=== PATIENT | male | born 1945 | race Caucasian/White ===

== ENCOUNTER 2018-05-23 00:41 | Outpatient (CLI) | payer MEDICARE, OTHER, SELFPAY ==
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
== END 2018-05-23 01:01 ==
PROVIDERS: PCP Nurse Practitioner Family; Visit Provider Nurse Practitioner Family
DX: M79.605 Pain in left leg (principal)
CPT/HCPCS: 73590

== ENCOUNTER 2019-10-16 12:06 | Outpatient (REF) | payer MEDICARE, OTHER, SELFPAY | END 2019-10-16 12:26 | LOC: LBN 12:06 | PROVIDERS: PCP Nurse Practitioner Family; Visit Provider Nurse Practitioner Family | DX: N20.0 Calculus of kidney (principal) | CPT/HCPCS: 82365 ==

== ENCOUNTER 2019-11-19 13:13 | Outpatient (REF) | payer MEDICARE, OTHER, SELFPAY ==
[2019-11-19 20:12] LABS: HCT 38.6 % (40.0-50.0); HGB 11.6 g/dL (13.5-17.5); Mean Corp. HGB Concentration 30.1 g/dL (32.0-36.0); Mean Corpuscular Hemoglobin 23.2 pg (27.0-33.0); Mean Corpuscular Volume 77.2 fL (80-95); Mean Platelet Volume 10.7 fL (8.0-11.0); Platelet Count 269 x1000/uL (130-400); White Blood Cell Count 7.94 k/cumm (4.4-10.8)
[2019-11-19 20:21] LABS: Anion Gap 7.9 mmol/L (3-11); BUN 20 mg/dL (7-18); CO2 27.1 mmol/L (21.0-32.0); CREATININE 1.25 mg/dL (0.70-1.30); Calcium 8.8 mg/dL (8.5-10.1); Calculated LDL 47 mg/dL (<100); Chloride 108 mmol/L (98-107); Cholesterol 108 mg/dL (<200); Estimated GFR 56.78 (mL/min/1.73m2); Glucose 87 mg/dL (74-106); HDL Cholesterol 28 mg/dL (40-60); Potassium 4.6 mmol/L (3.5-5.1); Sodium 143 mmol/L (136-145); Triglyceride 168 mg/dL (<150)
== END 2019-11-19 13:33 ==
LOC: LBO 13:13
PROVIDERS: PCP Nurse Practitioner Family; Visit Provider Nurse Practitioner Family
DX: E78.5 Hyperlipidemia, unspecified (principal); I10 Essential (primary) hypertension
CPT/HCPCS: 80048; 80061; 85027

== ENCOUNTER 2019-11-30 02:13 | Outpatient (CLI) | payer MEDICARE, OTHER, SELFPAY ==
[2019-11-30 15:18] LABS: Iron 26 ug/dL (65-175); Total Iron Binding Capacity 318 ug/dL (250-450); Transferrin Sat 8 % (20-55)
[2019-11-30 15:27] LABS: Anion Gap 6.7 mmol/L (3-11); BUN 23 mg/dL (7-18); CO2 25.3 mmol/L (21.0-32.0); CREATININE 1.32 mg/dL (0.70-1.30); Calcium 8.7 mg/dL (8.5-10.1); Chloride 108 mmol/L (98-107); Estimated GFR 53.32 (mL/min/1.73m2); Ferritin 10 ng/mL (26-388); Glucose 133 mg/dL (74-106); Potassium 4.4 mmol/L (3.5-5.1); Sodium 140 mmol/L (136-145)
== END 2019-11-30 02:33 ==
PROVIDERS: PCP Nurse Practitioner Family; Visit Provider Nurse Practitioner Family
DX: D50.9 Iron deficiency anemia, unspecified (principal); N28.9 Disorder of kidney and ureter, unspecified
CPT/HCPCS: 80048; 82728; 83540; 83550

== ENCOUNTER 2020-01-15 02:26 | Outpatient (CLI) | payer OTHER, MEDICARE, SELFPAY ==
[2020-01-15 12:29] LABS: Abs Immature Grans 0.04 10^3/uL (0.0-0.06); Absolute Basophil Count 0.07 10^3/uL (0.0-0.2); Absolute Eosinophil Count 0.29 10^3/uL (0.0-0.7); Absolute Lymphocyte Count 2.24 10^3/uL (1.2-3.4); Absolute Monocyte Count 1.09 10^3/uL (0.1-0.8); Absolute Neutrophil Count 6.04 10^3/uL (1.2-6.7); Basophils % 0.7; HCT 40.7 % (40.0-50.0); HGB 12.3 g/dL (13.5-17.5); Immature Grans % 0.4; Lymphocytes % 22.9; MCH 24.1 pg (27.0-33.0); MCHC 30.2 % (32.0-36.0); MCV 79.6 fL (80-95); MPV 10.3 fL (8.0-11.0); Monocytes % 11.2; Neutrophils % 61.8; Nucleated RBC 0 %; Platelet Count 223 10^3/uL (130-400); RBC 5.11 10^6/uL (4.36-5.78); RDW 17.6 % (11.8-14.1); RDW-SD 50.5 fL; WBC 9.77 10^3/uL (4.4-10.8)
== END 2020-01-15 02:46 ==
PROVIDERS: PCP Nurse Practitioner Family; Visit Provider Nurse Practitioner Family
DX: D50.9 Iron deficiency anemia, unspecified (principal)
CPT/HCPCS: 36415; 85025

== ENCOUNTER 2020-06-01 03:52 | Outpatient (CLI) | payer MEDICARE, OTHER, SELFPAY ==
[2020-06-01 11:04] LABS: Abs Immature Grans 0.02 10^3/uL (0.0-0.06); Absolute Basophil Count 0.08 10^3/uL (0.0-0.2); Absolute Eosinophil Count 0.27 10^3/uL (0.0-0.7); Absolute Lymphocyte Count 1.96 10^3/uL (1.2-3.4); Absolute Monocyte Count 0.91 10^3/uL (0.1-0.8); Absolute Neutrophil Count 6.05 10^3/uL (1.2-6.7); Basophils % 0.9; Eosinophils % 2.9; HCT 46.5 % (40.0-50.0); HGB 14.2 g/dL (13.5-17.5); Immature Grans % 0.2; Lymphocytes % 21.1; MCH 25.3 pg (27.0-33.0); MCHC 30.5 % (32.0-36.0); MCV 82.9 fL (80-95); MPV 10.4 fL (8.0-11.0); Monocytes % 9.8; Neutrophils % 65.1; Nucleated RBC 0 %; Platelet Count 220 10^3/uL (130-400); RBC 5.61 10^6/uL (4.36-5.78); RDW 15.9 % (11.8-14.1); RDW-SD 47.7 fL; WBC 9.29 10^3/uL (4.4-10.8)
[2020-06-01 12:03] LABS: Anion Gap 8.1 mmol/L (3-11); BUN 18 mg/dL (7-18); C-Reactive Protein 0.27 mg/dL (0.0-0.3); CO2 28.9 mmol/L (21.0-32.0); CREATININE 1.1 mg/dL (0.70-1.30); Chloride 106 mmol/L (98-107); Glucose 90 mg/dL (74-106); Potassium 4.6 mmol/L (3.5-5.1); Sodium 143 mmol/L (136-145)
[2020-06-01 12:29] LABS: ESR 11 mm/hr (1-20)
[2020-06-02 17:49] LABS: Erythropoietin 29.5 mIU/mL (2.6 - 18.5)
== END 2020-06-01 03:53 | disposition home or self-care (01) ==
LOC: LBO 03:52
PROVIDERS: PCP Nurse Practitioner Family; Visit Provider Nurse Practitioner Family
DX: D50.9 Iron deficiency anemia, unspecified (principal); N28.89 Other specified disorders of kidney and ureter
CPT/HCPCS: 36415; 80048; 82668; 85652; 85025; 86140

== ENCOUNTER 2020-11-30 03:36 | Outpatient (CLI) | payer MEDICARE, OTHER, SELFPAY ==
[2020-11-30 08:13] LABS: Abs Immature Grans 0.03 10^3/uL (0.0-0.06); Absolute Basophil Count 0.05 10^3/uL (0.0-0.2); Absolute Lymphocyte Count 1.72 10^3/uL (1.2-3.4); Absolute Monocyte Count 0.85 10^3/uL (0.1-0.8); Absolute Neutrophil Count 5.42 10^3/uL (1.2-6.7); Basophils % 0.6; Eosinophils % 4.7; HCT 45.9 % (40.0-50.0); HGB 14.1 g/dL (13.5-17.5); Immature Grans % 0.4; Lymphocytes % 20.3; MCH 27.1 pg (27.0-33.0); MCHC 30.7 % (32.0-36.0); MCV 88.1 fL (80-95); MPV 9.9 fL (8.0-11.0); Nucleated RBC 0 %; Platelet Count 237 10^3/uL (130-400); RBC 5.21 10^6/uL (4.36-5.78); RDW 14.6 % (11.8-14.1); RDW-SD 47.2 fL; WBC 8.47 10^3/uL (4.4-10.8)
[2020-11-30 08:35] LABS: Hemoglobin A1C 6.2 % (<5.7)
[2020-11-30 09:44] LABS: ALT 19 U/L (16-63); AST 20 U/L (15-37); Albumin 3.5 g/dL (3.4-5.0); Alkaline Phosphatase 78 U/L (46-116); Anion Gap 5.6 mmol/L (3-11); BUN 17 mg/dL (7-18); Bilirubin, Total 0.5 mg/dL (0.2-1.0); CO2 31.4 mmol/L (21.0-32.0); CREATININE 1.1 mg/dL (0.70-1.30); Calcium 8.9 mg/dL (8.5-10.1); Calculated LDL 61 mg/dL (<100); Chloride 107 mmol/L (98-107); Cholesterol 122 mg/dL (<200); Glucose 90 mg/dL (74-106); HDL Cholesterol 30 mg/dL (40-60); Potassium 4.8 mmol/L (3.5-5.1); Sodium 144 mmol/L (136-145); Total Protein 7.1 g/dL (6.4-8.2); Triglyceride 156 mg/dL (<150)
== END 2020-11-30 03:37 | disposition home or self-care (01) ==
PROVIDERS: PCP Nurse Practitioner Family; Visit Provider Nurse Practitioner Family
DX: R73.01 Impaired fasting glucose (principal); I10 Essential (primary) hypertension; E78.5 Hyperlipidemia, unspecified; Z79.899 Other long term (current) drug therapy
CPT/HCPCS: 36415; 80053; 80061; 83036; 85025

== ENCOUNTER 2020-12-02 10:39 | Outpatient (CLI) | payer MEDICARE, OTHER, SELFPAY ==
--- NOTE | 2020-12-02 10:00 | DI.RAD_ITS ---
Exam(s) XR CHEST 2V PA LATERAL EXAM: XR CHEST 2V PA LATERAL CLINICAL HISTORY: persistent cough >1 amy, decr lung sounds ?PNeumonia TECHNIQUE: 2D digital imaging was performed. COMPARISON: CR CHEST 2 VIEWS PA,LAT from 09/03/2014 FINDINGS: The heart is not enlarged. The lungs are clear and well expanded. No pleural effusion seen. Mediastin al contours appear intact. IMPRESSION: Normal chest. RADIATION DOSE DELIVERED: Total DLP
== END 2020-12-02 10:59 ==
PROVIDERS: PCP Nurse Practitioner Family; Visit Provider Nurse Practitioner Family
DX: R05 Cough (principal)
CPT/HCPCS: 71046

== ENCOUNTER 2022-03-02 02:11 | Outpatient (CLI) | payer MEDICARE, OTHER, SELFPAY ==
--- OUTSIDE RECORDS SUMMARY | 2022-03-02 02:14 | XMS_ITS | Clinical Summary ---
:1945 Author Organization [facility] [place] [address] Care Team Providers Name Role Phone Billy Camara MD Primary Care Provider [phone] Allergies Active Allergy Reactions Severity Noted Date Comments Terazosin Hcl Rash Medium Medications Medication Sig Dispensed Refills Start Date End Date Status atenolol (TENORMIN) 50 mg 50 MG = 1 0 05/30/2010 Active tablet Tablet(s), PO, Twice daily nitroGLYcerin (NITROSTAT) 0 05/22/2010 Active 0.4 mg SL tablet clopidogrel (PLAVIX) 75 Take 75 mg by 0 Active mg tablet mouth daily. lisinopril Take 10 mg by 0 Activ e (PRINIVIL;ZESTRIL) 10 mg mouth daily. tablet omeprazole (PRILOSEC) 20 Take 20 mg by 0 Active mg capsule mouth daily. simvastatin (ZOCOR) 20 mg Take 20 mg by 0 Active tablet mouth nightly. diphenhydrAMINE Take 75 mg by 0 Active (BENADRYL) 25 mg tablet mouth nightly. Active Problems Problem Noted Date Posterior vitreous detachment, left eye 12/06/2012 Pseudophakia of both eyes 12/06/2012 HTN (hypertension) 08/07/2012 Hyperlipidemia 08/07/2012 CVA (cerebrovascular accident) 08/07/2012 CIS - angina Immunizations Name Administration Dates Next Due Influenza Vaccine, Whole 02/23/2010 Family History Medical History Relation Comments Diabetes Neg Hx Glaucoma Neg Hx Macular Degeneration Neg Hx Social History Tobacco Use Types Packs/Day Years Used Date Former Smoker Cigarettes Quit: 04/29/18 92 Smokeless Tobacco: Never Used Alcohol Use Standard Drinks/Week Comments Yes 0 (1 standard drink = 0.6 oz pure alcoho l) seldom Alcohol Habits Answer Date Recorded How often do you have a drink containing alcohol? Not asked How many drinks containing alcohol do you have on a typical Not asked day when you are drinking? How often do you have six or more drinks on one occasion? No t asked Comment: seldom 12/02/2012 Sex Assigned at Date Recorded Not on file Last Filed Vital Signs Vital Sign Reading Time Taken Comments Blood Pressure 130/70 08/07/2012 1:40 PM EDT Pulse 64 08/07/2012 1:40 PM EDT Temperature - - Respiratory Rate - - Oxygen Saturation 98% 08/07/2012 1:40 PM EDT Inhaled Oxygen Concentration - - Weight 97.3 kg (214 lb 8 oz) 08/07/2012 1:40 PM EDT Height 172.7 cm (5' 8) 08/07/2012 1:40 PM EDT Body Mass Index 32.61 08/07/2012 1:40 PM EDT Plan of Treatment Health Maintenance Due Date Last Done Comments Covid-19 Vaccine (#1) 1945 Hepatitis C Screening 1965 Lipid Screening 1965 Tdap adult 1966 Tetanus vaccine 1966 Colonoscopy 02/09/1992 Zoster vaccine (1 of 2) 1997 Advance Directive 2002 Pneumoccocal Vaccine: 65+ (1 - PCV) 02/09/2012 Influenza (Flu) vaccine (1 of 1 - Influenza standard 12/28/2021 02/23/2010 series) Care Teams Hand Brim Ironer Relationship Specialty Start Date End Date Billy Camara MD PCP - General 03/21/[address] [place] [address]
--- OUTSIDE RECORDS SUMMARY | 2022-03-02 02:14 | XMS_ITS | Encounter Summary ---
:1945 Author Organization [facility] [place] [address] Care Team Providers Name Role Phone Billy Camara MD Primary Care Provider [phone] Encounter Details Date Type Department Care Team Description 05/22/2010 Office Visit Cardiology at [facility] Gabriel Galloway MD [facility] [place] [address] CARDIOLOGY DEPT. [phone] [place], [place] [address] (Wo rk) Social History Tobacco Use Types Packs/Day Years Used Date Never Assessed Sex Assigned at Date Recorded Not on file documented as of this encounter Plan of Treatment Not on filedocumented as of this encounter Visit Diagnoses Not on filedocumented in this encounter Care Teams Workers Compensation Claims Assistant Relationship Specialty Start Date End Date Billy Camara MD PCP - General 03/21/[address] [place] [address] documented as of this encounter
--- OUTSIDE RECORDS SUMMARY | 2022-03-02 02:14 | XMS_ITS | Encounter Summary ---
:1945 Author Organization [facility] Address [facility] [place] [address] Care Team Providers Name Role Phone Billy Camara MD Primary Care Provider [phone] Reason for Visit Reason Comments Eye Problem the patient presents for fo llowup evaluation of his vitreous separation in the left eye. DANIELA Fonseca Encounter Details Date Type Department Care Team Description 12/18/2012 Follow-Up Ophthalmology at [facility] Mario Blankenship Pseudophakia of both eyes (P rimary Dx); [facility] MD Avani Posterior vitreous detachment, [place] [address] OPHTHALMOLOGY DE PT. [place], [place] [address] (Wo rk) Social History Tobacco [...] on file documented as of this encounter Progress Notes Mario Lemus MD - 12/18/2012 2:16 PM EDT December 18, 2012 Leigh Carter MD Ophthalmology [address] [place] [address] RE: Robert Weaver A#: [id number] Dear leigh, Just a brief note regarding Robert Weaver who returns here today on 12/18/2012. As you know, he is a pleasant gentleman you asked me to see for evaluation of the vitreous separation and possible early peripheral retinal pathology. I am seeing him today for followup evaluation on 12/18/2012. In summary, I performed indirect ophthalmoscopy with scleral depression, examination with a three-mirror lens as well as a panfundus lens. I did not find any evidence of a retinal tear or traction in either eye, but the vitreous appears to be condensed. No holes, tears, or other high-risk changes requiring treatment are noted. DISCUSSION: Given the challenges with respect to his examination and his risk for a tear, I have asked him to return to see me for a final checkup in four weeks. If before that time he has any symptoms, I have asked him to call me immediately. I will keep you informed regarding his progress. Respectfully, Mario Lemus M.D. documented in this encounter Plan of Treatment Not on filedocumented as of this encounter Visit Diagnoses Diagnosis Pseudophakia of both eyes - Primary Lens replaced by other means Posterior vitreous detachment, left eye Vitreous degeneration documented in this encounter Care Teams Audio Visual Coordinator Relationship Specialty Start Date End Date Billy Camara MD PCP - General 03/21/[address] [place] [address] documented as of this encounter
--- OUTSIDE RECORDS SUMMARY | 2022-03-02 02:14 | XMS_ITS | Encounter Summary ---
:1945 Author Organization [facility] [place] [address] Care Team Providers Name Role Phone Billy Camara MD Primary Care Provider [phone] Reason for Visit Reason Comments Eye Problem The patient presents for con sultation regarding a possible retinal tear in the right eye.. DANIELA Fonseca Encounter Details Date Type Department Care Team Description 12/02/2012 Office Visit Ophthalmology at [facility] Tyrel Lemus, Posterior vitreous detachmen t, left eye (Primary Dx); [facility] Mario Varma MD Pseudophakia [place] [address] [address] [phone] OPHTHALMOLOGY DE PT. [place] [id number] (Wo rk) Social History Tobacco Use Types [...] encounter Progress Notes Mario Lemus MD - 12/06/2012 3:37 PM EDT December 07, 2012 Leigh Carter M.D. Ophthalmology [address] [place] [address], [address] [place] [id number] RE: Robert Weaver A#: [id number] Dear Leigh, I am expediting to you this brief note regarding Robert Weaver whom I saw for formal consultation on 12/02/2012. As you know, he developed flashes and floaters in the right eye and your concern about the possibility of a retinal tear and perhaps even a vitreous hemorrhage in the left eye. Careful examination did not reveal a small hole or tear. The vitreous demonstrated significant condensation, but I did not see any cell, hemorrhage or pigment. The view is somewhat hazy and therefore I am going to recommend that he return to see me within the next week for repeat evaluation. In the interim, if he has any flashes, floaters, or visual field changes, he has been instructed to call me immediately. I think that his vitreous separation is simply evolving, but I am concerned about the degree of vitreous condensation. When he returns, I will keep you informed regarding his progress. Respectfully, Mario Lemus M.D. ADDENDUM TO TECHNICIANS. Please be sure that both eyes are dilated. documented in this encounter Plan of Treatment Not on filedocumented as of this encounter Visit Diagnoses Diagnosis Posterior vitreous detachment, left eye - Primary Vitreous degeneration Pseudophakia of both eyes Lens replaced by other means documented in this encounter Care Teams Nuclear Weapons Mechanical Specialist Relationship Specialty Start Date End Date Billy Camara MD PCP - General 03/21/[address] [place] [address] documented as of this encounter
--- OUTSIDE RECORDS SUMMARY | 2022-03-02 02:14 | XMS_ITS | Encounter Summary ---
:1945 Author Organization [facility] [place] [address] Care Team Providers Name Role Phone Billy Camara MD Primary Care Provider [phone] Reason for Visit Reason Comments Vitreous Detachment Patient presents for followu p evaluation of his acute posterior vitreous detachment. CBC iMD Encounter Details Date Type Department Care Team Description 01/22/2013 Follow-Up Ophthalmology at [facility] C Mario Lemus Posterior vitreous detachmen t, left eye; [facility] MD Avani Pseudophakia of [place] [address] OPHTHALMOLOGY DE PT. [place], [place] [address] (Wo rk) Social History Tobacco [...] encounter Progress Notes Mario Lemus MD - 01/25/2013 8:39 PM EDT CLARIFICATION NEEDED: PLEASE CHECK DICTATED DATE OF SERVICE DECEMBER 22, 2012 WAS DICTATED. December 22, 2012 Leigh Carter MD Ophthalmology [address] [place] [address], [place] [address] RE: Robert Weaver A#: [id number] Dear Leigh: I had the pleasure of seeing your patient, Mr. Robert Weaver, for followup evaluation on 12/22/2012. As you know, I saw him earlier in November for vitreous separation in the left eye. I have seen him twice since his original consultation. I am pleased to report that there is no evidence of a retinal hole, tear, or other high-risk pathology. The vitreous is rather condensed in the vitreous base, but I do not see any unusual traction nor do I see anything which requires prophylactic laser treatment. Given three relatively stable retinal examinations, we have collectively decided that he should return to see you in the next two to three months for continuity of care. Still however, I have asked him to remain vigilant to report promptly for any flashes, floaters, or visual field loss given his symptoms and pseudophakic status. I would of course be pleased to see him at your request for any concerns whatsoever. Also, if you are not available, I would be more than pleased to see this gentleman at any time should he develop any new symptoms or concerns. Thank you kindly for asking me to provide consultation for this nice gentleman. Respectfully, Mario Lemus MD documented in this encounter Plan of Treatment Not on filedocumented as of this encounter Visit Diagnoses Diagnosis Posterior vitreous detachment, left eye Vitreous degeneration Pseudophakia of both eyes Lens replaced by other means documented in this encounter Care Teams Dynamics Ax Technical Architect Relationship Specialty Start Date End Date Billy Camara MD PCP - General 03/21/[address] [place] [address] documented as of this encounter
--- OUTSIDE RECORDS SUMMARY | 2022-03-02 02:14 | XMS_ITS | Encounter Summary ---
:1945 Author Organization [facility] [place] [address] Care Team Providers Name Role Phone Billy Camara MD Primary Care Provider [phone] Encounter Details Date Type Department Care Team Description 05/22/2010 Hospital Encounter Nuclear Medicine at [facility], Billy Mosquera MD [address] [place], [place] [address] [place] [address] Social History Tobacco Use Types Packs/Day Years Used Date Never Assessed Sex Assigned at Date Recorded Not on file documented as of this encounter Medications at Time of Discharge Medication Sig Dispensed Refills Start Date End Date nitroGLYcerin (NITROSTAT) 0.4 mg SL 0 05/22/2010 tablet traZODone (DESYREL) 50 mg tablet 0 08/07/2012 lisinopril (PRINIVIL;ZESTRIL) 10 mg 0 05/22/2010 08/07/2012 tablet documented as of this encounter Plan of Treatment Not on filedocumented as of this encounter Visit Diagnoses Not on filedocumented in this encounter Care Teams Driver Medic Relationship Specialty Start Date End Date Billy Camara MD PCP - General 03/21/[address] [place] [address] [place] [address] documented as of this encounter
--- OUTSIDE RECORDS SUMMARY | 2022-03-02 02:15 | XMS_ITS | Encounter Summary ---
:1945 Author Organization [facility] Address [address] [place] [address] Care Team Providers Name Role Phone Billy Camara MD Primary Care Provider Unavailable Encounter Details Date Type Department Care Team Description 06/09/2021 Lab Requisition [facility] Christopher May Encounter for screening for malignant neoplasm of colon; Pathology & MD Andrew Gastro-esophageal reflux disease without esophagitis Laboratory Medicine [address] [place] [phone] Social History Tobacco Use Types Packs/Day Years Used Date Never Assessed Sex Assigned at Date Recorded Not on file documented as of this encounter Plan of Treatment Not on filedocumented as of this encounter Procedures Procedure Name Priority Date/Time Associated Diagnosis Comme nts SURGICAL PATHOLOGY Today 06/08/2021 10:49 Encounter for Resu lts for this EST screening for procedure are in malignant neoplasm the resul ts of colon section. Gastro-esophageal reflux disease without esophagitis documented in this encounter Results SURGICAL PATHOLOGY (06/08/2021 10:49 EST) Note to Patient The following [facility] MEDICAL pathology results have CENTER been interpreted by LABORATORY your pathologist and SERVICES may be available to you before your health provider has had the opportunity to review them. Please allow time for your provider to receive these results and explore management options, if applicable. Final Diagnosis A. COLON, DESCENDING, POLYP, BIOPSY: U MEDICAL - Consistent with inflammatory polyp with lamina propria xanthomatous change. CENTER - Negative for dysplasia and malignancy. LABORATORY - See comment. SERVICES Diagnosis Comment The polyp shows prominent la ying propria histiocytes. Immunoperoxidase stains were performed on this case to further characterize the lesion. [facility] ANTIBODY(CLONE)(BLOCK):RESULT LABORATORY Keratin AE1-AE3 (AE1-AE3, [facility]) (A1): Negative for malignancy SERVICES CD163 (MRQ-26, [place]) (A1): Highlights lamina propri a histiocytes. CD1a (MTB1, Leica) (A1): Negative in histiocytes. NOTE: One or more of the re agents used in immunoperoxidase testing in this case may not have been cleared or approved by the U.S. Food and Drug Administration (FDA). The FDA has determined that such cl earance or approval is not n ecessary. These tests are used for clinical purposes. They should not be regarded as investigational or for research. These reagents' performance characteristics have been de termined by [facility] and/or by the referring laboratory. The positive and negative controls worked appropriately. If immunoperoxidase staining has been performed on alcoh ol fixed cytology specimens, which has not been fully validated, the assays should be interpreted with caution and correlated with clinical data. This laboratory is certified under the Clinical Laborato ry Improvement Amendments of 1988 (CLIA-88) as qualified to perform high complexity clinical laboratory testing. Carpenter Maintenance slides of thi s case were reviewed at the gastrointestinal/liver intradepartmental consultation conference. (RW, JK, ) Attestation By the signature below, [facility] tronically the attending physician CENTER sign ed by Royal Alves, certifies that they LABORATORY George Robertson MD on have 1) personally SERVICES 06/14/2021 at 1643 conducted a gross and/or microscopic examination of the described specimen(s), and/or personally interpreted the results of laboratory testing of the described specimen(s), and 2) personally rendered or confirmed the above diagnosis. Clinical History Screening colonoscopy, [facility] hx of diarrhea, colon CENTER polyp; clinical LABORATORY diagnosis code: K12.11, SERVICES K21.9 Gross Description A. [facility] Received in formalin gualberto d with proper patient identification (initials B, S) and polyp-proximal descending colon is a white focally pinpoint brown tissue (0.3 x 0.2 x 0.2 cm). Submitted intact in A1. CENTER LABORATORY Feliciano Rowland 06/09/2021 13:53 SERVICES Performing Lab [facility] LAB [facility] LABORATORY SERVICES Scanned Images [facility] LABORATORY SERVICES Specimen Tissue - Descending colon structure (bod y structure) Performing Organization Address City/State/ZIP Code Phon e Number [facility] LABORATORY [address] [place] [address] SERVICES documented in this encounter Visit Diagnoses Diagnosis Encounter for screening for malignant ne oplasm of colon Special screening for malignant neoplasm s, colon Gastro-esophageal reflux disease without esophagitis Esophageal reflux documented in this encounter Care Teams Business Analyst Ecommerce Relationship Specialty Start Date End Date Billy Camara MD PCP - General 08/01/12 documented as of this encounter
--- OUTSIDE RECORDS SUMMARY | 2022-03-02 02:15 | XMS_ITS | Encounter Summary ---
:1945 Author Organization [facility] Address [address] [place] [address] Care Team Providers Name Role Phone Unknown, Provider Primary Care Provider Encounter Details Date Type Department Care Team Description 07/31/2012 Results Only [facility] Yan Nagel MD Laboratory Services - [address] [place] [address] [place] [address] [place] [address] [phone] Social History Tobacco Use Types Packs/Day Years Used Date Never Assessed Sex Assigned at Date Recorded Not on file documented as of this encounter Plan of Treatment Not on filedocumented as of this encounter Procedures Procedure Name Priority Date/Time Associated Diagnosis Comme [facility] SURGICAL PATHOLOGY Routine 07/31/2012 21:39 Resul ts for this EDT procedure are i n the results section. documented in this encounter Results SURGICAL PATHOLOGY (07/31/2012 21:39 EDT) Pathology Report: SURGICAL PATHOLOGY REPORT DONALD YIP Reports generated via electronic interface contain raimundo ginal data; LAB however they are lacking the format of the original re port. Caution should be taken when reading/interpreting unfo rmatted reports. Name: ? ROBERT TRAN ? Accession #: ? [id number] ? : ? 1945 (Age: 67) ??M ? Collect Date: ? 07/31/2012 ? Location: ? [facility] ? Receive Date: ? 013 ? Provider: DES NAGEL MD Copy to: MARY TUTTLE MD ? Final Pathologic Diagnosis: A. ?Colon, transverse, biopsies: 1. ?Tubular adenoma. B. ?Colon, splenic flexure, biopsies: 1. ?Sessile serrated adenoma. C. ?Colon, sigmoid, biopsy: 1. ?Hyperplastic polyp. ?? Document reviewed and electronically signed by: JANI GIORDANO [facility] Report ??Date: 08/04/2012 16:33 By the signature above, the attending physician certif ies that he/she has personally conducted a gross and/or microscopic examin ation of the described specimens and rendered or confirmed the above diagnosi s. Specimen(s) Received: A. ?Tx colon bx (#1) B. ? Splenic flexure bx (#2) C. ? Sigmoid bx (#3) Clinical History: ?Colorectal CA screening Gross Description: ? Received in formalin labelled Meg, Robert and transverse colon biopsies are two pink-dominguez i rregular soft tissues both measuring 0.2 x 0.2 x 0.2 cm. ??The contents are entirely submitted in cassette (A1). Received in formalin gualberto d Meg, Robert and splenic flexure biopsy is a 1.1 x 0.7 x 0.3 cm dominguez-red polypoid tissue and two p ink-dominguez irregular soft tissues measuring 0.2 x 0.2 x 0.2 cm and 0.6 x 0.3 x 0.2 cm. ??The margins of the polypoid tissue are inked bl ue. ??The tissue is sectioned and entirely submitted in cassettes (B1) and (B2). The remaining fragme nts are submitted entirely in (B3). Received in formalin labelled Meg Robert and rosenda igmoid biopsy is a pink-dominguez irregular soft tissue fragment measuring 0.3 x 0.2 x 0.2 cm. ??The contents are entirely submitted in cassette (C1). ??(Kt Alanis)/[facility] End of Report Specimen Performing Organization Address City/State/ZIP Code Phon e Number [facility] [address] [place] [address] SERVICES [facility] [address] [place] [address] documented in this encounter Visit Diagnoses Not on filedocumented in this encounter Care Teams Speech Language Pathology Assistant Relationship Specialty Start Date End Date Unknown, Provider, PCP - General 07/31/12 07/31/12 documented as of this encounter
--- OUTSIDE RECORDS SUMMARY | 2022-03-02 02:15 | XMS_ITS | Encounter Summary ---
:1945 Author Organization [facility] Address [address] [place] [address] Care Team Providers Name Role Phone Billy Camara MD Primary Care Provider Unavailable Encounter Details Date Type Department Care Team Description 01/09/2016 Hospital Encounter [facility]- [place] Unknown, Provider, [facility] 0 [facility] [phone] [place] [address] (Work) [phone] Social History Tobacco Use Types Packs/Day Years Used Date Never Assessed Sex Assigned at Date Recorded Not on file documented as of this encounter Discharge Disposition Disposition Code Departure Means Destination Home or Self Usp documented in this encounter Plan of Treatment Not on filedocumented as of this encounter Visit Diagnoses Not on filedocumented in this encounter Care Teams Anesthesiology Resident Relationship Specialty Start Date End Date Billy Camara MD PCP - General 08/01/12 documented as of this encounter
--- OUTSIDE RECORDS SUMMARY | 2022-03-02 02:15 | XMS_ITS | Clinical Summary ---
:1945 Author Organization [facility] Address [address] [place] [address] Care Team Providers Name Role Phone Billy Camara MD Primary Care Provider Unavailable Social History Tobacco Use Types Packs/Day Years Used Date Never Assessed Sex Assigned at Date Recorded Not on file Plan of Treatment Health Maintenance Due Date Last Done Comments Hepatitis C Screen 1945 COVID-19 Vaccine (#1) 1945 Fall Risk Screening 02/09/2012 Insurance Payer Benefit Plan / Subscriber ID Effective Phone Address T ype Group Dates CIGNA CIGNA [id number] 2021-Prese [phone] [address] [employer] [facility] [address] nt [id number] [place] [address] MEDICARE MEDICARE A/B [id number] 2012-Pres [address] Medicare GL ent [id number] [facility] [place] [phone] Robert Weaver Personal/Family Self 1945 [address] (Home) [place] [address] Robert Weaver Personal/Family Self 1945 [address]Home) [place] [address] Care Teams Javascript Software Engineer Relationship Specialty Start Date End Date Billy Camara MD PCP - General 08/01/12
[2022-03-02 08:16] LABS: Abs Immature Grans 0.02 10^3/uL (0.0-0.06); Absolute Basophil Count 0.06 10^3/uL (0.0-0.2); Absolute Eosinophil Count 0.23 10^3/uL (0.0-0.7); Absolute Lymphocyte Count 1.93 10^3/uL (1.2-3.4); Absolute Monocyte Count 0.77 10^3/uL (0.1-0.8); Absolute Neutrophil Count 3.87 10^3/uL (1.2-6.7); Basophils % 0.9; Eosinophils % 3.3; HGB 15.7 g/dL (13.5-17.5); Immature Grans % 0.3; Lymphocytes % 28.1; MCH 29.6 pg (27.0-33.0); MCHC 32.7 % (32.0-36.0); MCV 91 fL (80-95); MPV 10.6 fL (8.0-11.0); Monocytes % 11.2; Neutrophils % 56.2; Platelet Count 236 10^3/uL (130-400); RDW 13.5 % (11.8-14.1); RDW-SD 45.1 fL; WBC 6.88 10^3/uL (4.4-10.8)
[2022-03-02 08:34] LABS: ALT 34 U/L (16-63); AST 18 U/L (15-37); Albumin 3.5 g/dL (3.4-5.0); Alkaline Phosphatase 83 U/L (46-116); Anion Gap 6.9 mmol/L (3-11); BUN 21 mg/dL (7-18); Bilirubin, Total 0.6 mg/dL (0.2-1.0); CO2 30.1 mmol/L (21.0-32.0); Calculated LDL 74 mg/dL (<100); Chloride 105 mmol/L (98-107); Cholesterol 138 mg/dL (<200); Estimated GFR 78.49 (mL/min/1.73m2); Glucose 90 mg/dL (74-106); HDL Cholesterol 37 mg/dL (40-60); Potassium 4.3 mmol/L (3.5-5.1); Sodium 142 mmol/L (136-145); Total Protein 7.5 g/dL (6.4-8.2); Triglyceride 139 mg/dL (<150)
== END 2022-03-02 02:12 | disposition home or self-care (01) ==
LOC: LBO 02:11
PROVIDERS: PCP Nurse Practitioner Family; Visit Provider Nurse Practitioner Family
DX: I10 Essential (primary) hypertension (principal); R73.01 Impaired fasting glucose; E78.5 Hyperlipidemia, unspecified; Z86.2 Personal history of diseases of the blood and blood-forming organs and certain disorders involving the immune mechanism
CPT/HCPCS: 36415; 80053; 80061; 83036; 85025

== ENCOUNTER 2022-09-07 00:22 | Outpatient (CLI) | payer BC, MEDICARE, SELFPAY ==
--- NOTE | 2022-09-07 07:48 | DI.RAD_ITS ---
Exam(s) XR CHEST 2V PA LATERAL EXAM: XR CHEST 2V PA LATERAL CLINICAL HISTORY: ? effusion to explain edema (vs. venous insuff),r60.9,r09.89 TECHNIQUE: 2D digital imaging was performed. COMPARISON: CR XR CHEST 2V PA LATERAL from 12/02/2020 FINDINGS: HEART: Normal size. Aorta: Not dilated. PULMONARY VASCULATURE: Normal. LUNGS: Clear. PLEURAL SPACE: No pleural effusion or pneumothorax. BONE:Unremarkable for age. IMPRESSION: No acute abnormality. DATA REPOSITORY: RADIATION DOSE DELIVERED:
== END 2022-09-07 00:42 ==
LOC: DI 00:23
PROVIDERS: PCP Nurse Practitioner Family; Visit Provider Nurse Practitioner Family
DX: R60.9 Edema, unspecified; I87.2 Venous insufficiency (chronic) (peripheral)
CPT/HCPCS: 71046

== ENCOUNTER 2023-01-30 11:08 | Outpatient (CLI) | payer BC, MEDICARE, SELFPAY ==
--- NOTE | 2023-01-30 10:30 | DI.RAD_ITS ---
Exam(s) XR HAND RT COMPLETE EXAM: XR HAND RT COMPLETE CLINICAL HISTORY: RIGHT HAND PAIN. TECHNIQUE: 2D digital imaging was performed. Three views. COMPARISON: No exams were available for comparison FINDINGS: BONES: No acute fracture is present. No bony destructive lesion is seen. JOINTS: No dislocation present. Degenerative changes, moderate to severe at the 1st carpal metacarp al joint. Cvax-bb-hamoiqth degenerative changes are noted in the interphalangeal joints. SOFT TISSUE: Normal. IMPRESSION: Degenerative changes, greatest at the 1st carpal metacarpal joint. DATA REPOSITORY: RADIATION DOSE DELIVERED:
== END 2023-01-30 11:09 | disposition home or self-care (01) ==
LOC: DIORS 11:09
PROVIDERS: PCP Nurse Practitioner Family; Visit Provider Student in an Organized Health Care Education/Training Program
DX: M19.041 Primary osteoarthritis, right hand (principal)
CPT/HCPCS: 73130

== ENCOUNTER 2023-02-28 06:09 | Day surgery (SDC) | payer BC, MEDICARE, SELFPAY ==
[2023-02-28 06:37] VITALS: BP 173/70; PULSE 57; RESP 18; TEMP 36.6; O2SAT 96
--- NOTE | 2023-02-28 07:23 | W.PM.DSUDISC ---
Date of service: 02/28/23 Time of Service: 10:30 Discharge Plan Disposition Patient Disposition: Home Condition: Stable Discharge Details Attending Provider: Hema Cardozo Primary Care Provider: Hannah Pedraza Home Meds and New Rx's Prescriptions: Continued melatonin PO QHS PRN (Reason: sleep) albuterol sulfate [ProAir HFA] 90 mcg/actuation HFA aerosol inhaler 1 - 2 puff Inhalation .Q4-6H PRN (Reason: shortness of breath or wheezing) Qty: 1 1RF Rx Instructions: SOB, cough, wheeze (use with spacer) aspirin [Aspir-81] 81 MG tablet,delayed release (DR/EC) 81 mg PO DAILY nitroglycerin 0.4 MG tablet, sublingual 0.4 mg Sublingual PRN Qty: 25 atenolol 50 mg tablet 50 mg PO HS Qty: 90 3RF atorvastatin 40 mg tablet 40 mg PO DAILY Qty: 90 3RF Hold Instructions: Changed by Provider Rx Instructions: reduce risk of recurrent stroke, vascular events clopidogrel [Plavix] 75 mg tablet 75 mg PO DAILY Qty: 90 3RF Rx Instructions: prevent stroke lisinopril 20 mg tablet 20 mg PO DAILY Qty: 90 3RF pantoprazole [Protonix] 40 mg tablet,delayed release (DR/EC) 40 mg PO DAILY Qty: 90 3RF Rx Instructions: Take 40 mg once daily in the morning at least 30-60 minutes before first meal Discharge Instructions Additional Instructions: Surgery: Right index, middle, and ring finger trigger release Activity: Protect hand for a few weeks. Gently increase finger motion and hand gripping to prevent stiffness. Recommend elevation to minimize swelling and discomfort. Prescriptions: None Resume home medicines, use [id number] Tylenol (acetaminophen) as needed for mild pain and ibuprofen (Motrin) or naproxen (Aleve) as needed for moderate to severe pain and swelling. Resume Aspirin & Plavix tomorrow morning. Dressings: Leave dressing in place for 3 days. May then remove and leave open to air or cover incision with Band-Aid. May get wet after 5 days. Follow-up: 10-[address] Cardozo Please call the office during business hours with any questions or concerns. Stand Alone Forms: Brooklynn Bolton (GARY) Discharge Orders Discharge Orders: Discharge Order (Routine); Ordered 02/28/23 Ordered By: Chad Mcbride Discharge Data Discharge Date/Time-TO BE ENTERED AT DEPARTURE: 02/28/23 08:47 DS: Diagnosis Discharge Diagnosis (1) Trigger finger, right ring finger: Status: Acute (2) Trigger finger, right index finger: Status: Acute (3) Trigger finger, right middle finger: Status: Acute
[2023-02-28] MEDS: Sodium Bicarbonate 50 MEQ/50 ML VIAL (07:24)
[2023-02-28] MEDS: Lidocaine 1% Multi-Dose W/EPI 1/100,000 50 ML VIAL (07:24)
--- NOTE | 2023-02-28 08:14 | ROE_ITS ---
Date of service: 02/28/23 Time of Service: 07:30 Operative Note Operative Note DATE OF PROCEDURE: 02/28/23 PRE-OP DIAGNOSIS: 1. Right middle trigger finger 2. Right ring trigger finger 3. Right index trigger finger PROCEDURE: 1. Right middle finger trigger release, CPT# 47891 2. Right ring finger trigger release, CPT# 90978 3. Right index finger trigger release, CPT# 81600 SURGEON: Hema Cardozo REAL ESTATE AGENCY LICENSEE: None None ANESTHESIA TYPE: Local By Surgeon Refer to Anesthesia Record ESTIMATED BLOOD LOSS: 5 COMPLICATIONS: None Patient was transported to: same day Patient's condition: stable Indications: Please see complete medical record for details. Procedure Description: In the operating room, the patient was positioned supine on the stretcher. All bony prominences were padded. Preoperative antibiotics were omitted. The correct patient, procedures, and side of the procedure were all verified prior to beginning. Local anesthesia was induced about the sites with 20cc of 1% lidocaine containing epinephrine buffered with 2 cc of sodium bicarbonate. The Right hand was prepped and draped in the usual sterile fashion. Proper analgesia was confirmed. A small volar longitudinal approach was made overlying the middle finger MCP joint in a skin crease. Soft tissues were swept to the sides and retracted to expose the A1 batsheva. The release was started centrally with a knife and completed at the proximal and distal margins with tenotomy scissors. Care was taken to protect the flexor tendons. The tendons were inspected and showed moderate bulbous degeneration. Appropriate flexor tendon excursion was confirmed. The patient readily demonstrated full extension and almost 90 degrees of combined flexion of the finger without triggering. The small limitation to terminal flexion is likely from chronic avoidance of deep flexor. Passively the finger could be brought completely flexed to the palm. T his terminally flexed was emphasized multiple times. Next, a small volar longitudinal approach was made overlying the ring finger MCP joint in a skin crease. Soft tissues were swept to the sides and retracted to expose the A1 batsheva. The release was started centrally with a knife and completed at the proximal and distal margins with tenotomy scissors. Care was taken to protect the flexor tendons. The tendons were inspected and showed mild bulbous degeneration. Appropriate flexor tendon excursion was confirmed. The patient readily demonstrated full extension and flexion of the finger without triggering. Lastly, a small volar oblique approach was made overlying the middle finger MCP joint in a skin crease. Soft tissues were swept to the sides and retracted to expose the A1 batsheva. The release was started centrally with a knife and completed at the proximal and distal margins with tenotomy scissors. Care was taken to protect the flexor tendons. The tendons were inspected and showed minimal bulbous degeneration. Appropriate flexor tendon excursion was confirmed. The patient readily demonstrated full extension and flexion of the finger without triggering. The small incisions were irrigated and then dried. Hemostasis was appropriate. The incisions were closed using 3-0 nylon in a horizontal mattress fashion. Xeroform was applied followed by gauze and the hand was gently compressed with an Yusuf bandage. The patient tolerated local anesthesia without complication and was transferred out of the operating room in a stable condition.
[2023-02-28 08:15] VITALS: BP 183/69; PULSE 63; RESP 18; TEMP 36.6; O2SAT 96
== END 2023-02-28 08:47 | disposition home or self-care (01) ==
PROVIDERS: PCP Nurse Practitioner Family; Visit Provider Student in an Organized Health Care Education/Training Program
PROC: (CPT 26055; principal; 2023-02-28 07:30)
DX: M65.321 Trigger finger, right index finger (principal); M65.331 Trigger finger, right middle finger; M65.341 Trigger finger, right ring finger
CPT/HCPCS: 26055 ×3

== ENCOUNTER 2023-07-18 08:51 | Outpatient (CLI) | payer BC, MEDICARE, SELFPAY ==
[2023-07-18 07:57] LABS: Abs Immature Grans 0.02 10^3/uL (0.0-0.06); Absolute Basophil Count 0.06 10^3/uL (0.0-0.2); Absolute Eosinophil Count 0.29 10^3/uL (0.0-0.7); Absolute Lymphocyte Count 1.92 10^3/uL (1.2-3.4); Absolute Monocyte Count 0.97 10^3/uL (0.1-0.8); Absolute Neutrophil Count 4.84 10^3/uL (1.2-6.7); Basophils % 0.7; Eosinophils % 3.6; HCT 51.2 % (40.0-50.0); HGB 16.6 g/dL (13.5-17.5); Immature Grans % 0.2; Lymphocytes % 23.7; MCH 29.3 pg (27.0-33.0); MCHC 32.4 % (32.0-36.0); MCV 91 fL (80-95); MPV 9.9 fL (8.0-11.0); Neutrophils % 59.8; Platelet Count 188 10^3/uL (130-400); RBC 5.66 10^6/uL (4.36-5.78); RDW 13.2 % (11.8-14.1); RDW-SD 43.7 fL
[2023-07-18 08:33] LABS: ALT 31 U/L (16-63); AST 18 U/L (15-37); Albumin 3.7 g/dL (3.4-5.0); Alkaline Phosphatase 94 U/L (46-116); Anion Gap 7.2 mmol/L (3-11); BUN 20 mg/dL (7-18); Bilirubin, Total 0.7 mg/dL (0.2-1.0); CO2 28.8 mmol/L (21.0-32.0); CREATININE 1.1 mg/dL (0.70-1.30); Calcium 9.1 mg/dL (8.5-10.1); Calculated LDL 60 mg/dL (<100); Chloride 109 mmol/L (98-107); Cholesterol 122 mg/dL (<200); Estimated GFR 69.57 (mL/min/1.73m2); Glucose 95 mg/dL (74-106); HDL Cholesterol 42 mg/dL (40-60); Potassium 4.3 mmol/L (3.5-5.1); Sodium 145 mmol/L (136-145); Total Protein 7.6 g/dL (6.4-8.2); Triglyceride 101 mg/dL (<150)
== END 2023-07-18 08:52 | disposition home or self-care (01) ==
LOC: LBO 08:53
PROVIDERS: PCP Nurse Practitioner Family; Visit Provider Nurse Practitioner Family
DX: I10 Essential (primary) hypertension (principal); R73.01 Impaired fasting glucose; E78.5 Hyperlipidemia, unspecified; Z51.81 Encounter for therapeutic drug level monitoring
CPT/HCPCS: 36415; 80053; 80061; 83036; 85025

== ENCOUNTER 2024-06-14 09:12 | Emergency (ER) | payer OTHER, MEDICARE, SELFPAY ==
--- NOTE | 2024-06-14 09:15 | DI.RAD_ITS ---
Exam(s) XR HIP LT COMPLETE AP PELVIS EXAM: XR HIP LT COMPLETE AP PELVIS CLINICAL HISTORY: pain at left hip, fall. TECHNIQUE: 2D digital imaging was performed. COMPARISON: No exams were available for comparison FINDINGS: 3 views No evidence of pelvic nor hip fracture. Minimal degenerative changes. SI joints unremarkable. No o sseous lesions. IMPRESSION: No fractures evident. DATA REPOSITORY: RADIATION DOSE DELIVERED:
--- NOTE | 2024-06-14 09:15 | DI.RAD_ITS ---
Exam(s) XR KNEE LT 3V AP,LAT,PAM EXAM: XR KNEE LT 3V AP,LAT,PAM CLINICAL HISTORY: proximal knee pain after fall. TECHNIQUE: 2D digital imaging was performed. COMPARISON: No exams were available for comparison FINDINGS: 3 views No evidence of fracture or joint effusion. No joint space narrowing. Bone density normal. No osseo us lesions. IMPRESSION: No significant osseous findings in the knee. DATA REPOSITORY: RADIATION DOSE DELIVERED:
[2024-06-14 09:18] VITALS: BP 172/96; PULSE 65; RESP 16; O2SAT 94
[2024-06-14 09:26] VITALS: TEMP 36.7
--- NOTE | 2024-06-14 09:33 | ED.GENADUL_ITS ---
Discharge Plan Disposition Patient Disposition: Home Condition: Good Discharge Details Clinical Impression: Iliotibial band syndrome, left leg Primary Care Provider: Lesley Rodriguez ED Provider: Buddy Andrews Home Meds and New Rx's Prescriptions: New lidocaine [Lidoderm] 5 % adhesive patch,medicated 1 patch Topical Q24H Qty: 15 0RF No Action melatonin PO QHS PRN (Reason: sleep) nitroglycerin 0.4 mg tablet, sublingual 0.4 mg Sublingual PRN Qty: 25 6RF ketoconazole 2 % cream 1 applic topical DAILY Qty: 120 6RF Rx Instructions: Apply to toenails once daily cephalexin 500 mg capsule 500 mg PO TID Qty: 21 0RF albuterol sulfate [ProAir HFA] 90 mcg/actuation HFA aerosol inhaler 1 - 2 puff Inhalation .Q4-6H PRN (Reason: shortness of breath or wheezing) Qty: 1 1RF Rx Instructions: SOB, cough, wheeze (use with spacer) aspirin [Aspir-81] 81 MG tablet,delayed release (DR/EC) 81 mg PO DAILY atenolol 50 mg tablet 50 mg PO HS Qty: 90 3RF clopidogrel [Plavix] 75 mg tablet 75 mg PO DAILY Qty: 90 3RF Rx Instructions: prevent stroke atorvastatin 40 mg tablet 40 mg PO DAILY Qty: 90 3RF Rx Instructions: reduce risk of recurrent stroke, vascular events lisinopril 20 mg tablet 20 mg PO DAILY Qty: 90 3RF pantoprazole [Protonix] 40 mg tablet,delayed release (DR/EC) 40 mg PO DAILY Qty: 90 3RF Rx Instructions: Take 40 mg once daily in the morning at least 30-60 minutes before first meal Discharge Instructions Instructions: Iliotibial Band Syndrome (DC) Additional Instructions: At this time your symptoms are consistent with IT band syndrome. Please apply ice to the areas of pain throughout the day. Please apply the Voltaren gel 2-3 times per day. Please perform regular stretching exercises. Please contact the physical therapist to set up an appointment time for physical therapy. Please continue to take Tylenol. Please take the muscle relaxants only as needed for breakthrough pain, and please be cognizant that they can cause weakness, dizziness, and a mild change in mental status. Avoid any activities that would be dangerous with these changes. If you notice any worsening of your symptoms, or any new symptoms such as vomit ing, diarrhea, fever, chills, shortness of breath, chest pain, numbness, weakness, or fainting , please return immediately to the emergency department for reevaluation. Please follow up with your primary care provider as soon as possible for reassessment and reevaluation. As always, it was a pleasure participating in your medical care today. Stand Alone Forms: Physical Therapy Referral Referrals: Lesley Rodriguez NP [Primary Care Provider] - Discharge Data Discharge Date/Time-TO BE ENTERED AT DEPARTURE: 06/14/24 10:34 HPI General Date/Time Provider Initiated Documentation: 06/14/24 09:15 . HPI Narrative: 79-year-old male with past medical history of cerebrovascular accident, currently on aspirin and Plavix who presents today for evaluation of left thigh knee and hip pain. Patient states that about a week to a week and a half ago he was walking and he fell, he might of hit his knee at that time, but did not develop any knee or hip pain then. However subsequently over the last 3 to 4 days he has developed gradual pain and achiness that travels from the left hip down to the lateral aspect of the left knee just proximal to the knee itself. He states that it is worse when he tries to get up, ambulate or bend at the hip. He denies fever or chills. He denies numbness tingling or weakness. Patient denies any saddle anesthesia, numbness or tingling in the groin, change in sensation when wiping. Patient denies any change in sensation during sexual intercourse, difficulty achieving or maintaining an erection or ejaculation, bowel or bladder incontinence, leakage, or retention. Patient denies any weakness in the lower extremities, atypical falls or imbalance. He has taken Tylenol but this has not improved his symptoms. No other complaints at this time. Related Data Home Medications ?Medication ?Instructions ?Recorded ?Confirmed aspirin 81 mg tablet,delayed 81 mg PO DAILY 07/17/12 03/04/24 release (Aspir-) albuterol sulfate 90 mcg/actuation 1 - 2 puff inhalation .Q4-6H PRN 11/04/20 03/04/24 aerosol inhaler (ProAir HFA) shortness of breath or wheezing #1 unit melatonin PO QHS PRN sleep 03/31/21 03/04/24 atenolol 50 mg tablet 50 mg PO HS #90 tabs 06/10/23 03/04/24 clopidogrel 75 mg tablet (Plavix) 75 mg PO DAILY #90 tabs 06/17/23 03/04/24 atorvastatin 40 mg tablet 40 mg PO DAILY #90 tab-caps 12/31/23 03/04/24 nitroglycerin 0.4 mg sublingual 0.4 mg sublingual PRN #25 tabs 01/27/24 03/04/24 tablet cephalexin 500 mg capsule 500 mg PO TID #21 caps 02/17/24 03/04/24 ketoconazole 2 % topical cream 1 applic topical DAILY #120 grams 03/04/24 03/04/24 lisinopril 20 mg tablet 20 mg PO DAILY #90 tabs 06/10/24 pantoprazole 40 mg tablet,delayed 40 mg PO DAILY #90 tab-caps 06/10/24 release (Protonix) lidocaine 5 % topical patch 1 patch topical Q24H #15 ea 06/14/24 (Lidoderm) Previous Rx's ?Medication ?Instructions ?Recorded albuterol sulfate 90 mcg/actuation 1 - 2 puff inhalation .Q4-6H PRN 11/04/20 aerosol inhaler (ProAir HFA) shortness of breath or wheezing #1 unit atenolol 50 mg tablet 50 mg PO HS #90 tabs 06/10/23 clopidogrel 75 mg tablet (Plavix) 75 mg PO DAILY #90 tabs 06/17/23 atorvastatin 40 mg tablet 40 mg PO DAILY #90 tab-caps 12/31/23 nitroglycerin 0.4 mg sublingual 0.4 mg sublingual PRN #25 tabs 01/27/24 tablet cephalexin 500 mg capsule 500 mg PO TID #21 caps 02/17/24 ketoconazole 2 % topical cream 1 applic topical DAILY #120 grams 03/04/24 lisinopril 20 mg tablet 20 mg PO DAILY #90 tabs 06/10/24 pantoprazole 40 mg tablet,delayed 40 mg PO DAILY #90 tab-caps 06/10/24 release (Protonix) lidocaine 5 % topical patch 1 patch topical Q24H #15 ea 06/14/24 (Lidoderm) Allergies Allergy/AdvReac Type Severity Reaction Status Date / Time No Known Allergies Allergy Verified 02/17/24 15:31 General Stated Complaint: Orthopedic MARCELLA: 4 Exam Narrative Exam Narrative: 1.Const: Well-nourished, Well-developed, appearing stated age 2.Eyes: PERRL, no conjunctival injection, and symmetrical lids. 3.ENT: Atraumatic external nose and ears. Moist MM. Neck: Symmetric, trachea midline, No thyromegaly. 4.CVS: +S1/S2, Peripheral pulses 2+ and equal in all extremities. Brisk capillary refill in all extremities. 5.RESP: Unlabored respiratory effort. Clear to auscultation bilaterally. No wheezes rales or rhonchi 6.GI: Soft, Nontender/Nondistended, No hepatosplenomegaly. No guarding or rebound. 7.MSK: Normocephalic/Atraumatic, Extremities w/o deformity or ttp No cyanosis or clubbing, Normal movement of all extremities. Patient has notable tightness of the IT band throughout, with focal tenderness at the proximal and distal insertion points. No pain with varus or valgus stressing of the knee, no pain with Esvin's test, no patellar tenderness. No crepitus. No redness or warmth. No tenderness for the cervical thoracic or lumbar spine. No tenderness over the sacroiliac joint. 8.Skin: Warm, Dry. No rashes or lesions. 9.Neuro: network technician II-XII grossly intact. Sensation grossly intact, no focal neurologic deficits. 10.Psych: (AAO) x3. Appropriate mood and affect Course Vital Signs Vital signs: Vital Signs Pulse 65 06/14/24 09:18 Respiratory Rate 16 06/14/24 09:18 Blood Pressure 172/96 H 06/14/24 09:18 Pulse Oximetry 94 06/14/24 09:18 Temperature 36.7 C 06/14/24 09:26 Temperature Source Oral 06/14/24 09:26 Pulse 65 06/14/24 09:18 Respiratory Rate 16 06/14/24 09:18 Blood Pressure 172/96 H 06/14/24 09:18 Blood Pressure Position Sitting 06/14/24 09:18 Pulse Oximetry 94 06/14/24 09:18 Oxygen Delivery Method Room Air 06/14/24 09:18 Oxygen Flow Rate 0 06/14/24 09:18 Medical Decision Making 79-year-old male with past medical history of cerebrovascular accident, currently on aspirin and Plavix who presents today for evaluation of left thigh knee and hip pain. Patient states that about a week to a week and a half ago he was walking and he fell, he might of hit his knee at that time, but did not develop any knee or hip pain then. However subsequently over the last 3 to 4 days he has developed gradual pain and achiness that travels from the left hip down to the lateral aspect of the left knee just proximal to the knee itself. He states that it is worse when he tries to get up, ambulate or bend at the hip. He denies fever or chills. He denies numbness tingling or weakness. Patient denies any saddle anesthesia, numbness or tingling in the groin, change in sensation when wiping. Patient denies any change in sensation during sexual intercourse, difficulty achieving or maintaining an erection or ejaculation, bowel or bladder incontinence, leakage, or retention. Patient denies any weakness in the lower extremities, atypical falls or imbalance. He has taken Tylenol but this has not improved his symptoms. No other complaints at this time. Patient has notable tightness of the IT band throughout, with focal tenderness at the proximal and distal insertion points. No pain with varus or valgus stressing of the knee, no pain with Esvin's test, no patellar tenderness. No crepitus. No redness or warmth. No evidence to suggest cellulitis. No evidence to suggest DVT via history or exam. Concern for notable IT band syndrome. Doubt osseous abnormality, but we will g et x-ray for further evaluation. Will recommend continued NSAID therapy, will apply Lidoderm patches over the insertion points, we will recommend topical Voltaren gel and stretching. 11:30 AM X-rays returned negative for acute process, symptoms appear clinically consistent with IT band syndrome at this time. Will place physical therapy referral, recommended stretches, recommend continued NSAID therapy Lidoderm patches and Voltaren gel. Patient understands. Patient will be discharged home. Discussed red flags for which to return. I have extensively reviewed the treatment plan and discharge instructions with the patient. I have addressed all patient concerns at this time. The patient was made aware of what symptoms to monitor for that would warrant a return to the emergency department. Discussed the plan with the patient, they demonstrate verbal understanding and agreement with our assessment and plan at this time. The documentation in this chart was dictated using inMotionNow dictation software. Please excuse any dictation errors. FINDINGS: Bones/joints: Degenerative changes in both hips and lumbar spine. There is no evidence of acute fracture.There is no evidence of malalignment or dislocation. Soft tissues: Unremarkable. IMPRESSION: 1. Degenerative changes in both hips and lumbar spine. 2. There is no evidence of acute fracture.There is no evidence of malalignment or dislocation. Thank you for allowing us to participate in the care of your patient. Dictated and Authenticated by: Shukri Padilla MD 06/14/2024 10:10 AM Eastern Time ([place] & [place]) FINDINGS: Bones/joints: There is no evidence of acute fracture.There is no evidence of malalignment or dislocation. Minimal degenerative changes in the patellofemoral joint Soft tissues: Normal. IMPRESSION: There is no evidence of acute fracture.There is no evidence of malalignment or dislocation. Thank you for allowing us to participate in the care of your patient. Dictated and Authenticated by: Shukri Padilla MD 06/14/2024 10:10 AM Eastern Time ([place] & [place]) Quality:SDOH Health Related Social Needs: No Data to Display PFSH All Active Problems (Updated 06/14/24 @ 10:16 by Buddy Andrews DO) Iliotibial band syndrome, left leg (Acute) Nail dystrophy (Acute) Onychomycosis (Acute) Edema (Acute) Neuropathy (Acute) Pre-diabetes (Acute) Trigger finger, right ring finger (Acute) Trigger finger, right index finger (Acute) Positive self-administered antigen test for COVID-19 (Acute) Peripheral edema (Acute) Venous insufficiency (Acute) History of anemia (Acute) IFG (impaired fasting glucose) (Acute) Trigger finger, right middle finger (Acute) Nevus of back (Acute) Obesity (BMI 30.0-34.9) (Chronic) Hyperlipidemia (Chronic) Sequelae, 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) Left leg numbness/weakness; initial 1991, worse 1999 Gastroesophageal reflux disease (Chronic) Essential hypertension (Chronic 09/28/91) Dx at time of CVA Cholelithiasis without obstruction (Chronic) Hypersomnolence disorder, persistent (Chronic 10/07/15) Medical History Microcytic anemia Hydronephrosis (02/24/07) right Tobacco use disorder quit 1991 due to CVA, >50 yrs Angina pectoris, unspecified Tubular adenoma of colon (01/09/16) 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 age 79. Breast cancer Father , Kidney failure. at age 42. Hypertension Brother Heart disease Social History Smoking/Tobacco Use Status: Former Tobacco Use Smoking risk assessment performed?: Yes Alcohol Intake: current Alcohol Intake frequency: holidays/special occasions only Drug use: Never Substance use type: does not use Adopted: No Caregiver/Support person: No Foster care: No Household members: spouse Housing: house Number of Children: 0 number of grandchildren: 0 Communication Needs: None Education Level: high school Do you need help understanding health information?: Rarely current occupation: Retired Pets and animals: No Sexually active: No Do you think of yourself as: straight/heterosexual Current gender identity: male What is your relationship status?: How often do you talk on the phone with friends or family?: once per week How often do you get together with friends or relatives?: decline to answer Panel score (0-1 are the most socially isolated patients): 1 What type of physical activity do you participate in: none Duration: < 15 minutes/day Ricarda/Yazdanism: Jainism Special ricarda needs: No Seatbelt use: always Water heater temp set <120 deg: Yes Working smoke detector in home: Yes Fire extinguisher in home: Yes Carbon monox detector in home: Yes Do you feel safe at home: Yes Do you feel safe in your relationship?: Yes
--- NOTE | 2024-06-14 10:10 | DI.VRAD_ITS ---
PROCEDURE INFORMATION: Exam: XR Left Knee Exam date and time: 06/14/2024 9:46 AM Age: 79 years old Clinical indication: Injury or trauma; Fall; Blunt trauma; Knee; Left TECHNIQUE: Imaging protocol: Radiologic exam of the left knee. Views: 3 views. COMPARISON: CR XR tib/fib LT 05/23/2018 8:47 AM FINDINGS: Bones/joints: There is no evidence of acute fracture.There is no evidence of malalignment or dislocation. Minimal degenerative changes in the patellofemoral joint Soft tissues: Normal. IMPRESSION: There is no evidence of acute fracture.There is no evidence of malalignment or dislocation. Dictated and Authenticated by: Shukri Padilla MD. Orderin Juliana Goodwin MD
--- NOTE | 2024-06-14 10:10 | DI.VRAD_ITS ---
PROCEDURE INFORMATION: Exam: XR Left Hip Exam date and time: 06/14/2024 9:49 AM Age: 79 years old Clinical indication: Injury or trauma; Fall; Blunt trauma (contusions or hematomas); Left; Hip TECHNIQUE: Imaging protocol: Radiologic exam of the left hip. Views: 2 or 3 views hip with pelvis when performed. COMPARISON: No relevant prior studies available. FINDINGS: Bones/joints: Degenerative changes in both hips and lumbar spine. There is no evidence of acute fracture.There is no evidence of malalignment or dislocation. Soft tissues: Unremarkable. IMPRESSION: 1. Degenerative changes in both hips and lumbar spine. 2. There is no evidence of acute fracture.There is no evidence of malalignment or dislocation. Dictated and Authenticated by: Shukri Padilla MD. Orderin Juliana Goodwin MD
[2024-06-14] MEDS: Lidocaine 5% Patch 2 PATCH TP (10:28)
[2024-06-14] MEDS: Diclofenac 1% Gel 100 GM TUBE TP (10:28)
[2024-06-14] MEDS: Cyclobenzaprine 10 MG TAB, 3 TABS/BTL PO (10:29)
[2024-06-14 10:30] VITALS: BP 205/79; PULSE 64; RESP 16; O2SAT 94
== END 2024-06-14 10:34 | disposition home or self-care (01) ==
PROVIDERS: Emergency Provider Student in an Organized Health Care Education/Training Program; PCP Nurse Practitioner
DX: M76.32 Iliotibial band syndrome, left leg (principal)
CPT/HCPCS: 73562; 99284; 73502; 99283

== ENCOUNTER 2024-06-18 00:29 | Outpatient (CLI) | payer OTHER, MEDICARE, SELFPAY ==
--- NOTE | 2024-06-18 06:00 | DI.CT_ITS ---
Exam(s) CT PELVIC WO EXAM: CT PELVIC WO CLINICAL HISTORY: s/p fall,XRs neg,? fracture,LT HIP PAIN,w19.XXXA,R10.2,M25.552. TECHNIQUE: Imaging Protocol: Axial computed tomography images with coronal and sagittal reformatted images were created and reviewed. COMPARISON: CR,XR XR HIP LT COMPLETE AP PELVIS from 06/14/2024 FINDINGS: Bones: There is a question of some of cortical regularity involving the left inferior pubic ramus. The sacrum is intact. No evidence of a sacral fracture is seen. Bony alignment is satisfactory. No cellulitic or osteomyelitic changes are identified. There are mild degenerative changes seen in the hips bilaterally. No lytic or sclerotic lesions are identified. At L5-S1 there are marked degenerat lavon changes present corresponding to disc space narrowing and bony hypertrophy of the facets. The fi ndings result in marked narrowing of the central spinal canal. Soft Tissues: There is diverticulosis in the colon without evidence of acute diverticulitis. Normal appendix is present. No evidence of bowel obstruction is seen. There is a small fat containing umbi lical hernia. The prostate gland is mildly enlarged. There is atherosclerosis of the aorta noted. IMPRESSION: 1. Question of cortical regularity involving the left inferior pubic ramus which may represent a nond isplaced fracture. If there is continued clinical concern, an MRI may be obtained for further evalua tion. 2. L5-S1 degenerative changes resulting in marked central spinal canal stenosis. 3. Incidental finding seen in the pelvis as described above. RADIATION DOSE DELIVERED: 356.58mGy.cm Total DLP 356.58mGy.cmTotal DLP DATA REPOSITORY: All CT scans at this facility are submitted to the National Radiology Data Registry (NRDR) Dose Index Registry (DIR) with the [employer] ([employer]). RADIATION OPTIMIZATION: All CT scans at this facility use at least one of these dose optimization te chniques: automated exposure control; mA and/or kV adjustment per patient size (includes targeted exa ms where dose is matched to clinical indication); or iterative reconstruction.
== END 2024-06-18 00:49 ==
LOC: DI 00:29
PROVIDERS: PCP Nurse Practitioner; Visit Provider Nurse Practitioner
DX: W19.XXXA Unspecified fall, initial encounter (principal); M25.552 Pain in left hip; R10.2 Pelvic and perineal pain; M48.07 Spinal stenosis, lumbosacral region
CPT/HCPCS: 72192

== ENCOUNTER 2024-06-30 02:09 | Outpatient (CLI) | payer OTHER, MEDICARE, SELFPAY ==
--- NOTE | 2024-06-30 08:15 | DI.MRI_ITS ---
Exam(s) MR PELVIS WO EXAM: MR PELVIS WO CLINICAL HISTORY: pain, ? pelvis fx on CT,ABNL CT, RECENT FALL,R93.89 TECHNIQUE: Multiplanar multisequence MRI of Pelvis was performed COMPARISON: CR,XR XR HIP LT COMPLETE AP PELVIS from 06/14/[address] PELVIC WO from 06/18/2024 FINDINGS: OSSEOUS: No evidence of hip fracture or pelvic fracture. There is no abnormal marrow signal in the i nferior pubic ramus on the left side which was apparently area of concern on the recent CT scan. The re is no marrow signal abnormality at this level nor elsewhere in the bones of the pelvis and hips. Also no significant findings in the sacroiliac joints and symphysis pubis. HIPS: No evidence of hip fractures nor avascular necrosis. There are mild degenerative changes in th e hips.. There is some labral signal abnormality in the and terrier superior left hip labrum; probab le small tear at this level. Similar findings are not seen on the right side. Musculotendinous structures: There is some intramuscular signal abnormality just lateral to the left side of the symphysis pubis within the pectineus muscle, consistent with mild intramuscular tearing. No obvious bursitis. There is mild tendinitis signal at the bilateral hamstrings attachments, sligh tly more so on the left side. No high-grade tears. OTHER: Enlarged and lobulated prostate gland. Recommend PSA testing. Mildly distended urinary bladd er. IMPRESSION: 1. No evidence of fracture or bone contusion. There is no evidence of fracture of the inferior pubic ramus on the left side which was apparently area of possible concern on recent CT scan. 2. There is some abnormal signal in the adjacent left pectineus muscle just lateral to the left side of the symphysis pubis consistent with partial tearing of the muscle at this level. There is no larg e hematoma at this level nor elsewhere in the pelvis. 3. Mild degenerative changes in both hips. No hip joint effusions. 4. Enlarged prostate gland noted and moderately distended urinary bladder DATA REPOSITORY:
== END 2024-06-30 02:29 ==
LOC: DI 02:09
PROVIDERS: PCP Nurse Practitioner; Visit Provider Nurse Practitioner
DX: N40.0 Benign prostatic hyperplasia without lower urinary tract symptoms (principal); M16.0 Bilateral primary osteoarthritis of hip
CPT/HCPCS: 72195

== ENCOUNTER 2024-10-12 12:50 | Outpatient (REF) | payer OTHER, MEDICARE, SELFPAY ==
[2024-10-12 16:04] LABS: HCT 47.9 % (40.0-50.0); HGB 15.8 g/dL (13.5-17.5); MCH 30.3 pg (27.0-33.0); MCV 92 fL (80-95); MPV 10.6 fL (8.0-11.0); Platelet Count 196 10^3/uL (130-400); RBC 5.22 10^6/uL (4.36-5.78); RDW 12.8 % (11.8-14.1); RDW-SD 43.1 fL; WBC 7.78 10^3/uL (4.4-10.8)
[2024-10-12 16:23] LABS: ALT 29 U/L (16-63); AST 23 U/L (15-37); Albumin 3.5 g/dL (3.4-5.0); Alkaline Phosphatase 100 U/L (46-116); Anion Gap 7.5 mmol/L (3-11); BUN 20 mg/dL (7-18); Bilirubin, Total 0.8 mg/dL (0.2-1.0); CO2 26.5 mmol/L (21.0-32.0); CREATININE 1.1 mg/dL (0.70-1.30); Calcium 8.7 mg/dL (8.5-10.1); Calculated LDL 58 mg/dL (<100); Chloride 107 mmol/L (98-107); Cholesterol 125 mg/dL (<200); Estimated GFR 69.14 (mL/min/1.73m2); Glucose 89 mg/dL (74-106); HDL Cholesterol 38 mg/dL (>or=40); Potassium 4.3 mmol/L (3.5-5.1); Sodium 141 mmol/L (136-145); Total Protein 7.3 g/dL (6.4-8.2); Triglyceride 148 mg/dL (<150)
[2024-10-12 16:36] LABS: Hemoglobin A1C 5.8 % (<5.7)
[2024-10-12 22:23] LABS: PSA, Screening 5.2 ng/mL (<=6.5)
== END 2024-10-12 12:51 | disposition home or self-care (01) ==
LOC: NCHCN 12:50
PROVIDERS: PCP Nurse Practitioner Family; Visit Provider Nurse Practitioner Family
DX: E78.5 Hyperlipidemia, unspecified (principal); R73.01 Impaired fasting glucose; D50.9 Iron deficiency anemia, unspecified; Z12.5 Encounter for screening for malignant neoplasm of prostate
CPT/HCPCS: 80053; 80061; 84153; 85027; 83036